=== PATIENT | female | born 1965 | race Caucasian/White ===

== ENCOUNTER 2018-10-19 00:47 | Outpatient (CLI) | payer OTHER, SELFPAY ==
--- NOTE | 2018-10-19 17:33 | DI.MAMMO_ITS ---
SYMPTOMS/DIAGNOSIS: SCREENING, Z12.39 MAMMOGRAMS: Mammograms were interpreted according to the usual protocol including computer analysis with CAD system, tomosynthesis and C view imaging. The breast tissue is of moderate radiodensity. There is no evidence of a mass. There are no suspicious calcifications and there has been no significant interval change when compared with prior images. SUMMARY: No evidence of malignancy, category 1. Yearly screening mammography is recommended. Breast density category B. SA ASSESSMENT OF FINDINGS: Negative. Category 1. Patient will receive a letter notifying them of these results. BI-RADS category B. There are scattered areas of fibroglandular density.
== END 2018-10-19 01:07 ==
PROVIDERS: PCP Nurse Practitioner Family; Visit Provider Nurse Practitioner Family
DX: Z12.31 Encounter for screening mammogram for malignant neoplasm of breast (principal)
CPT/HCPCS: 77063; 77067

== ENCOUNTER 2018-11-03 15:15 | Outpatient (REF) | payer OTHER, SELFPAY ==
[2018-11-03 22:39] LABS: TSH (W/Ref FT4) 0.44 uIU/mL (0.358-3.74)
== END 2018-11-03 15:35 ==
LOC: NCHCN 15:15
PROVIDERS: PCP Nurse Practitioner Family; Visit Provider Nurse Practitioner Family
DX: F41.8 Other specified anxiety disorders (principal); Z63.8 Other specified problems related to primary support group
CPT/HCPCS: 84443

== ENCOUNTER 2019-03-02 07:47 | Outpatient (CLI) | payer MEDICAID, SELFPAY ==
--- NOTE | 2019-03-02 06:00 | DI.RAD_ITS ---
SYMPTOM/DIAGNOSIS: LUMBAR SPONDYLOSIS C-ARM FLUOROSCOPY 03/02 Fluoroscopy Time: 79.4 sec C-Arm fluoroscopy was utilized by Dr. Lim during reported bilateral radiofrequency ablation. Hard copy shows needle placement bilaterally adjacent to the pedicles at what appear to be L4-L5 and S-1.
[2019-03-02 07:51] VITALS: BP 112/71; PULSE 71; RESP 16; TEMP 36.1; O2SAT 99
[2019-03-02] MEDS: Midazolam 2 MG/2 ML VIAL IVP (08:40)
[2019-03-02] MEDS: fentaNYL 100 MCG/2 ML VIAL IVP (08:42)
[2019-03-02] MEDS: Lactated Ringers 1,000 ML 80 ML IV (08:43)
[2019-03-02 09:19] VITALS: BP 129/83; PULSE 65; RESP 17; O2SAT 99
--- NOTE | 2019-03-02 09:25 | PDOC.PAIN ---
Pain Clinic Procedure Note Current Active Problems Problem Status Onset Spondylosis of lumbar region without myelopathy or radiculopathy LUMBAR/SACRAL MEDIAL BRANCH RADIOFREQUENCY USING THE COOLIEF MACHINE ELA LOVE has been referred [facility] the [facility] for radiofrequency treatment of chronic axial back pain. ELA has had long standing back pain thought to be facet joint generated and which has been refractory to other therapies. Local anesthetic medial branch blocks or intra-articular facet joint injections resulted in ELA reporting reduction of the usual axial component of pain for at least the duration of the local anesthetic effect. COMMENTS:She had >6 months of relief with her last RFA on 01/18/2018. I did elect to add the bilateral S1 lateral branches to get a better denervation of the bilateral L5-S1 facet joints without any added cost. Patient was interviewed and the medical record reviewed. There were no medical, pharmacologic, radiographic or other structural contraindications to attempting fluoroscopically guided radiofrequency treatment. Risks and expected side effects as well as potential benefit of the procedure were reviewed and voiced concerns addressed. The printed consent form was signed and witnessed. Standard time-out procedure was performed. Patient was placed in the prone position on the fluoroscopy table and automated blood pressure cuff and pulse oximeter applied. The skin entry points for approaching the anatomic target points of the segmental medial branches of bilateral L3-L5DR and the bilateral S1 lateral brancheswere identified with fluoroscopy and marked. Following thorough Chlorhexadine preparation of the skin and draping and 1% lidocaine infiltration of the skin entry points and subcutaneous tissues, a single 18 guage curved 10 cm 10mm active tip radiofrequency cannula was placed under fluoroscopic guidance along or across the anatomic course of each respective segmental medial branch. Each placement was stimulated at 50Hz and les then 0.5V for medial branch sensory localization and the at 2Hz and up to 3 times the sensory voltage without any evidence of distal myotomal stimulation. 1cc of 1% ;idocaine was injected at each site. At each placement a continuous mode radiofrequency treatment was done at 90 degrees C for 90secs. This radiofrequency treatment should result in the denervation of the bilateral L4-L5 and L5-S1 FACET JOINTS. A total of 4 facets were expected to be denervated from today's treatment. Vital signs were stable throughout the procedure and were as recorded in the docflowsheet by the nursing staff. If given, dosages of intravenous drugs for anxiolysis and analgesia were documented in the Medication Administration Record (MAR). Follow up plans and appointments were discussed. Post procedure instruction was given as documented in the nursing documentation and having met discharge criteria, ELA was [facility] from the [facility]. COMMENTS: If she achieves at least 6 months of pain relief we can repeat this procedure without repeating the LMBBs. CC: Joi Herrera
[2019-03-02] MEDS: methylPREDNISolone ACETATE 40 MG/ML VIAL IJ (09:44)
[2019-03-02] MEDS: Bupivacaine 0.5% Pres-Free 10 ML VIAL IJ (09:45)
[2019-03-02] MEDS: Lidocaine 2% Pres-Free 5 ML VIAL IJ (09:46)
== END 2019-03-02 08:07 ==
PROVIDERS: PCP Nurse Practitioner Family; Visit Provider Preventive Medicine Occupational Medicine
DX: M47.816 Spondylosis without myelopathy or radiculopathy, lumbar region (principal)
CPT/HCPCS: 64635 ×2; 64636 ×2; 72100; J1030; J2250; J3010

== ENCOUNTER 2019-03-04 17:39 | Emergency (ER) | payer MEDICAID, SELFPAY ==
[2019-03-04 17:43] VITALS: BP 121/60; PULSE 84; RESP 18; TEMP 36.4; O2SAT 98
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
[2019-03-04] MEDS: Hydrocortisone 1% CR 30 GM TUBE (18:20)
== END 2019-03-04 18:25 | disposition home or self-care (01) ==
PROVIDERS: Emergency Provider Emergency Medicine; PCP Nurse Practitioner Family
DX: R20.8 Other disturbances of skin sensation (principal); R21 Rash and other nonspecific skin eruption
CPT/HCPCS: 99283

== ENCOUNTER 2019-11-01 13:52 | Outpatient (REF) | payer MEDICAID, SELFPAY ==
[2019-11-01 20:39] LABS: Abs Immature Grans 0.03 k/cumm (0.0-0.09); Absolute Basophil Count 0.05 k/cumm (0.0-0.2); Absolute Eosinophil Count 0.09 k/cumm (0.0-0.7); Absolute Monocyte Count 0.51 k/cumm (0.11-0.7); Absolute Neutrophil Count 3.26 k/cumm (1.2-6.7); Basophils % 0.8; Eosinophils % 1.5; HCT 39.5 % (36.0-46.0); HGB 12.9 g/dL (12.0-15.5); Immature Grans % 0.5 %; Lymphocytes % 35.8; Mean Corp. HGB Concentration 32.7 g/dL (32.0-36.0); Mean Corpuscular Hemoglobin 29.9 pg (27.0-33.0); Mean Corpuscular Volume 91.6 fL (80-95); Mean Platelet Volume 10.7 fL (8.0-11.0); Monocytes % 8.3; Neutrophils % 53.1; Platelet Count 273 x1000/uL (130-400); RBC 4.31 m/cumm (4.00-5.20); RBC Distribution Width 12.8 % (11.7-14.6); White Blood Cell Count 6.14 k/cumm (4.4-10.8)
[2019-11-01 21:12] LABS: Iron 69 ug/dL (50-170); Total Iron Binding Capacity 296 ug/dL (250-450); Transferrin Sat 23 % (15-50)
[2019-11-01 21:33] LABS: Hemoglobin A1C 5.7 % (3.8-5.6)
[2019-11-01 21:36] LABS: Ferritin 117 ng/mL (8-252); TSH (W/Ref FT4) 0.63 uIU/mL (0.36-3.74); Vitamin B12 678 pg/mL (193-986)
[2019-11-02 06:32] LABS: Vitamin D 25 Total 29.6 ng/ml (30-100)
[2019-11-02 15:49] LABS: ALT 18 U/L (14-59); AST 14 U/L (15-37); Albumin 3.9 g/dL (3.4-5.0); Alkaline Phosphatase 74 U/L (46-116); Anion Gap 7.3 mmol/L (3-11); BUN 10 mg/dL (7-18); Bilirubin, Total 0.2 mg/dL (0.2-1.0); CO2 30.7 mmol/L (21.0-32.0); CREATININE 0.87 mg/dL (0.55-1.02); Calcium 8.6 mg/dL (8.5-10.1); Chloride 104 mmol/L (98-107); Glucose 105 mg/dL (74-106); Potassium 4.5 mmol/L (3.5-5.1); Sodium 142 mmol/L (136-145); Total Protein 6.9 g/dL (6.4-8.2)
== END 2019-11-01 14:12 ==
LOC: NCHCN 13:52
PROVIDERS: PCP Nurse Practitioner Family; Visit Provider Nurse Practitioner Family
DX: R63.4 Abnormal weight loss (principal); R53.83 Other fatigue; F41.8 Other specified anxiety disorders; R73.03 Prediabetes
CPT/HCPCS: 80053; 82306; 82607; 82728; 83036; 83540; 83550; 84443; 85025

== ENCOUNTER 2020-06-26 13:28 | Emergency (ER) | payer MEDICAID, SELFPAY ==
[2020-06-26 13:35] VITALS: BP 132/88; PULSE 82; RESP 16; TEMP 36.7; O2SAT 97
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
[2020-06-26 14:41] LABS: Abs Immature Grans 0.05 10^3/uL (0.0-0.06); Absolute Basophil Count 0.06 10^3/uL (0.0-0.2); Absolute Eosinophil Count 0.17 10^3/uL (0.0-0.7); Absolute Lymphocyte Count 2.47 10^3/uL (1.2-3.4); Absolute Monocyte Count 0.53 10^3/uL (0.1-0.8); Absolute Neutrophil Count 5.39 10^3/uL (1.2-6.7); Basophils % 0.7; HCT 39.5 % (36.0-46.0); HGB 12.3 g/dL (11.2-15.7); Immature Grans % 0.6; Lymphocytes % 28.5; MCH 29.4 pg (27.0-33.0); MCHC 31.1 % (32.0-36.0); MCV 94.3 fL (80-95); MPV 9.4 fL (8.0-11.0); Monocytes % 6.1; Neutrophils % 62.1; Nucleated RBC 0 %; Platelet Count 268 10^3/uL (130-400); RBC 4.19 10^6/uL (3.93-5.22); RDW 12.4 % (11.7-14.6); RDW-SD 42.6 fL; WBC 8.67 10^3/uL (4.4-10.8)
[2020-06-26] MEDS: Omnipaque 350 MG/ML 100 ML BTL IJ (14:57)
[2020-06-26] MEDS: Normal Saline Flush 10 ML SYR IVP (14:58)
[2020-06-26] MEDS: Normal Saline - Diluent 50 ML VIAL IV (14:58)
[2020-06-26 14:59] LABS: ALT 18 U/L (14-59); AST 14 U/L (15-37); Albumin 3.6 g/dL (3.4-5.0); Alkaline Phosphatase 55 U/L (46-116); Anion Gap 4.2 mmol/L (3-11); BUN 11 mg/dL (7-18); Bilirubin, Total 0.4 mg/dL (0.2-1.0); CO2 32.8 mmol/L (21.0-32.0); CREATININE 0.97 mg/dL (0.55-1.02); Calcium 8.8 mg/dL (8.5-10.1); Chloride 104 mmol/L (98-107); Glucose 86 mg/dL (74-106); Potassium 4.1 mmol/L (3.5-5.1); Sodium 141 mmol/L (136-145); Total Protein 7.1 g/dL (6.4-8.2)
--- NOTE | 2020-06-26 15:10 | DI.CT_ITS ---
EXAM: CT BRAIN NECK CTA CLINICAL HISTORY: sudden visual changes wednesday morning. TECHNIQUE: Imaging Protocol: Axial CT angiography was performed with multi-slice acquisition and mu lti-planar and/or 3D reconstructions. CONTRAST MATERIAL: Intravenous: Omnipaque 350 Contrast volume:structured data in ml COMPARISON: No exams were available for comparison FINDINGS: CT angiography of the cervical cranial region was performed according to the usual protocol with intr avenous infusion of 85 cc of Omnipaque 350.. Initial noncontrast scanning of the head is unremarkable except for probable right sphenoid sinusitis .. Visualized lung apices are clear. Visualized portions of thoracic aorta and pulmonary arterial circul ation are unremarkable. There is no evidence of a cervical mass or adenopathy. The tracheal laryngeal structures appear intact. The common, internal, and external carotid arteries are within normal limits in the cervical region w ith no evidence of aneurysm, stenosis, or dissection. The vertebral arteries are unremarkable in appearance in the cervical region with no evidence of aneu rysm, stenosis, or dissection. Intracranial portions of the internal carotid arteries appear normal with no evidence of aneurysm, st enosis, or dissection. Intracranial vertebral arteries and basilar artery appear normal with no evidence of aneurysm, stenos is or dissection. The vertebral circulation is left dominant with a small patent right vertebral art sonja which terminates at the level of the PICA. No aneurysm identified in the region of the udkyrf-ri-Iriigl. The anterior, middle, and posterior cer ebral arteries and major branches appear intact with no evidence of aneurysm, stenosis, or dissection . No enhancing brain lesion identified. IMPRESSION: Negative CT angiography of the cervical cranial region. RADIATION DOSE DELIVERED: 1,072.49mGy.cmTotal DLP 1,072.49mGy.cm Total DLP DATA REPOSITORY: All CT scans at this facility are submitted to the National Radiology Data Registry (NRDR) Dose Index Registry (DIR) with the [employer] (ACR). RADIATION OPTIMIZATION: All CT scans at this facility use at least one of these dose optimization te chniques: automated exposure control; mA and/or kV adjustment per patient size (includes targeted exa ms where dose is matched to clinical indication); or iterative reconstruction.
== END 2020-06-26 15:26 | disposition home or self-care (01) ==
PROVIDERS: Emergency Provider Physician Assistant; PCP Nurse Practitioner Family
DX: H53.8 Other visual disturbances (principal)
CPT/HCPCS: 36415; 70496; 70498; 80053; 99285; 85025; J3490

== ENCOUNTER 2021-04-16 20:28 | Emergency (ER) | payer MEDICAID, SELFPAY | END 2021-04-16 20:45 | LOC: ER 20:31 | PROVIDERS: PCP Nurse Practitioner Family | DX: Z53.21 Procedure and treatment not carried out due to patient leaving prior to being seen by health care provider (principal) ==

== ENCOUNTER 2021-05-29 01:41 | Outpatient (CLI) | payer MEDICAID, SELFPAY ==
--- OUTSIDE RECORDS SUMMARY | 2021-05-29 01:43 | XMS_ITS ---
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 ? Active ? 68333 RxNorm Gabapentin ? ? Active ? Penicillins ? ? Active ? Medications Name Status Start Date Stop Date ? ? acetaminophen Active ? Not available albuterol sulf 90 mcg/actuation breath activated powde r inhaler,sensor Completed ? 12/11/2019 Inhale 2 puffs every 4 hours by inhalation route. fentanyl 25 mcg/hr transdermal patch Completed ? 12/11/2019 Apply 1 patch every 72 hours by transdermal route. Low Dose Aspirin 81 mg tablet,delayed release Active ? Not available Take 1 tablet every day by oral route. Nasonex 50 mcg/actuation [place] Completed ? 0 12/11/2019 [place] 2 sprays every day by intranasal route. Symbicort 160 mcg-4.5 mcg/actuation HFA aerosol inhaler Complete d ? 12/11/2019 Inhale 2 puffs twice a day by inhalation route. Vicodin ES 7.5 mg-300 mg tablet Completed ? 12/11/2019 Take 1 tablet every 6 hours by oral route. Xopenex HFA 45 mcg/actuation aerosol inhaler Completed ? 12/11/2019 Inhale 2 puffs every 6 hours by inhalation route. Zyrtec 10 mg capsule Active ? Not availab le Take by oral route. Problems Name Status Onset Date Source ? Hyperlipidemia Active 12/06/2019 ? Obesity Active 12/06/2019 ? Anxiety Active 12/06/2019 ? Depressive Disorder Active 12/06/2019 ? Obstructive Sleep Apnea Syndrome Active 12/06/2019 ? Migraine Active 12/06/2019 ? Allergic Rhinitis Active 12/06/2019 ? Asthma Active 12/06/2019 ? Restrictive Lung Disease Active 12/06/2019 ? Gastroesophageal Reflux Disease Active 12/06/2019 ? Low Back Pain Active 12/06/2019 ? 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 12/11/2019 Polysomnogram Information not avai lable Results Lab Results None recorded. Past Encounters 02/20/2020 Hypersomnia Disorder Related to a Known Organic Factor Tori Payton [employer] MANAGER: [address] [phone], Ph. 12/11/2019 Obstructive Sleep Apnea Syndrome; Period ic Leg Movements of Sleep Tori Payton [employer] MANAGER: [address] [phone], Ph. Social History Tobacco Smoking Status Never Smoker (1/2 pack per day) Not es: quit 2017 Vaccine List None recorded. Plan of Care Reminders Provider Appointments None ? ? recorded. Lab None ? ? recorded. Referral None ? ? recorded. Procedures None ? ? recorded. Surgeries None ? ? recorded. Imaging None ? ? recorded. Vitals 02/20/2020 12:30PM Office 30 Height Weight BMI 154.94 cm 45.36 kg 18.9 kg/m2 12/11/2019 02:30PM New Patient 45 Height Weight BMI Blood Pressure 154.94 cm 46.72 kg 19.5 kg/m2 128/60 mm[Hg]
--- NOTE | 2021-05-29 10:09 | DI.MAMMO_ITS ---
Exam(s) MAMMO SCREENING EXAM: MAMMO SCREENING CLINICAL HISTORY: SCREENING EXAM FOR BREAST CANCER Z12.39. TECHNIQUE: Bilateral full field digital CC and MLO mammographic images were obtained with 3D tomosyn thesis and utilizing computer aided detection (CAD). COMPARISON: Prior mammograms dating back to 2015, the most recent being September 2018. FINDINGS: There has been no significant change in appearance and distribution fibroglandular tissue. There are no new spiculated masses nor malignant appearing microcalcification groups. There is no significant architectural distortion nor skin thickening-retraction. IMPRESSION: No radiographic evidence of malignancy. BI-RADS Category 1 - Negative Breast Density - Category B - Scattered areas of fibroglandular density Breast density Category C or D implies that the patient has dense breast tissue. Dense breast tissue can make it harder to find cancer on a mammogram. Dense breast tissue is also associated with an incr eased risk of breast cancer. This information about the result of the mammogram report was provided to the patient to raise their awareness. Use this report when you speak with the patient about their risks for breast cancer, which includes their family history. At that time, you may recommend additional screening tests (Ultrasoun d or MRI) as these tests may add significant information. A negative radiographic report should not delay biopsy if a dominant or clinically suspicious mass is present. Up to ten percent of cancers are not identified on mammography. A negative report may reinforce clinical impression. Adenosis and dense breasts may obscure an underlying neoplasm. False positive reports average 6 to 10%. Patient will receive a letter notifying them of these results.
== END 2021-05-29 02:01 ==
PROVIDERS: PCP Nurse Practitioner Family; Visit Provider Nurse Practitioner Family
DX: Z12.31 Encounter for screening mammogram for malignant neoplasm of breast (principal)
CPT/HCPCS: 77063; 77067

== ENCOUNTER 2021-06-14 09:50 | Outpatient (REF) | payer MEDICAID, SELFPAY ==
[2021-06-15 10:43] LABS: COVID-19 RT-PCR UVMMC Result Negative (Negative)
== END 2021-06-14 09:51 | disposition home or self-care (01) ==
LOC: NCHCN 09:50
PROVIDERS: PCP Nurse Practitioner Family; Visit Provider Physician Assistant Medical
DX: Z20.822 Contact with and (suspected) exposure to COVID-19 (principal)
CPT/HCPCS: U0003

== ENCOUNTER 2021-09-16 03:20 | Outpatient (CLI) | payer MEDICAID, SELFPAY ==
--- NOTE | 2021-09-16 13:00 | NS.NUTBLAN_ITS ---
Yovana was referred for nutritional counseling for weight management s/p gastric bypass surgery in 2016. Highest weight: 252 lbs, Lowest weight: 110 lbs. 5'2 125 lbs, BMI: 23. Overall, bariatric surgery uncomplicated and able to digest most foods. Continues to have dumping syndrome and fullness with large meals. Yovana reports putting her mother and into snf in [facility] of this year. has early Alzheimers and she has been caring for him at home for last 2 years, sleeping on sofa at night to be sure didn't leave house. Daughter just moved in with her as she was feeling lost living alone. Reports increase in beer drinking (through out day) and smoking since left- not working. Sleeps for 2 hours, wakes up, eats chips through out day. Has had severe depression since June and has not been taking any vitamins. Scoop nails indicate vitamin deficiency. Diet recall: beer, chips, hashbrown with cheese on tortilla. Session today focused on how life stressors can alter nutritional intake. [place] on junk foods, beer and nicotine all coping mechanisms to stress. Psychiatry appointment pending. Reviewed importance of restarting MVI, Calciuim Vit D and sublingual B12. Reviewed importance of increasing protein in diet. Weight regain expected. At ideal weight at this time. Goal is to maintain weight below 130 lbs. Plan: 1. Protein Shakes at [employer], Dinner: 4 ounces protein and vegetables. 2. reduce beer and chip intake 3. reduce reliance on nicotine- talk to PCP about patch follow up 10/14/21 at 1 pm.
== END 2021-09-16 03:21 | disposition home or self-care (01) ==
LOC: DS 03:20
PROVIDERS: PCP Nurse Practitioner Family; Visit Provider Dietitian, Registered
DX: K91.1 Postgastric surgery syndromes (principal); E56.9 Vitamin deficiency, unspecified; F32.89 Other specified depressive episodes; Z98.84 Bariatric surgery status; Z71.3 Dietary counseling and surveillance
CPT/HCPCS: 97802

== ENCOUNTER 2021-09-30 04:33 | Outpatient (CLI) | payer MEDICAID, SELFPAY | END 2021-09-30 04:34 | disposition home or self-care (01) | LOC: LBO 04:33 | PROVIDERS: PCP Nurse Practitioner Family; Referring Provider Nurse Practitioner Family ==

== ENCOUNTER 2021-10-13 02:43 | Outpatient (CLI) | payer MEDICAID, SELFPAY | END 2021-10-13 02:44 | disposition home or self-care (01) | LOC: LBO 02:44 | PROVIDERS: PCP Nurse Practitioner Family; Referring Provider Nurse Practitioner Family ==

== ENCOUNTER 2021-10-14 02:31 | Outpatient (CLI) | payer MEDICAID, SELFPAY | END 2021-10-14 02:32 | disposition home or self-care (01) | LOC: DS 02:31 | PROVIDERS: PCP Nurse Practitioner Family; Visit Provider Dietitian, Registered ==

== ENCOUNTER 2021-10-22 04:54 | Outpatient (CLI) | payer MEDICAID, SELFPAY | END 2021-10-22 04:55 | disposition home or self-care (01) | LOC: LBO 04:54 | PROVIDERS: PCP Nurse Practitioner Family; Visit Provider Nurse Practitioner Family ==

== ENCOUNTER 2021-10-23 03:20 | Outpatient (CLI) | payer MEDICAID, SELFPAY | END 2021-10-23 03:21 | disposition home or self-care (01) | LOC: DS 03:20 | PROVIDERS: PCP Nurse Practitioner Family; Visit Provider Dietitian, Registered ==

== ENCOUNTER 2021-11-07 10:00 | Outpatient (REF) | payer MEDICAID, SELFPAY ==
--- NOTE | 2021-11-07 09:00 | PAPFT_PTH ---
PATIENT: Yovana Apodaca LOC: [facility] U#:[id number] AGE/SX: 56/F ROOM: RE11/07/[address]: Colleen Jurado APRN : 1965 BED: DIS: 11/07/2021 SPEC #: [id number] RECD: 11/07/21 16:03 STATUS: KAZ SIMS #: [id number] SAMEER: 11/07/21 09:[address]: Colleen Jurado DEPT: [facility] Cytology RECD BY: Leah Khan Tissues: 1 - CX/ENDOCX FOR PAP SMEARS Procedures: PAP THIN PREP/UVM Screening HPV DNA PROBE Comments: [id number]
== END 2021-11-07 10:01 | disposition home or self-care (01) ==
LOC: LBN 10:00
PROVIDERS: PCP Nurse Practitioner Family; Visit Provider Nurse Practitioner Family
DX: Z11.51 Encounter for screening for human papillomavirus (HPV) (principal); Z12.4 Encounter for screening for malignant neoplasm of cervix
CPT/HCPCS: 88142; 87624

== ENCOUNTER 2022-04-16 10:16 | Outpatient (CLI) | payer MEDICAID, SELFPAY ==
--- NOTE | 2022-04-16 06:00 | DI.RAD_ITS ---
Exam(s) XR PAIN CLINIC LUMBAR SP 2V EXAM: XR PAIN CLINIC LUMBAR SP 2V CLINICAL HISTORY: Dx: Lumbar Spondylosis TECHNIQUE: 2D and realtime digital imaging was performed. COMPARISON: No exams were available for comparison FINDINGS: C-arm fluoroscopy was utilized by Dr. Lim during reported bilateral lumbar medial branch block. Messi d copy shows needle placement bilaterally at what appear to be the L3-4, L4-5, and L5-S1 levels. IMPRESSION: RADIATION DOSE DELIVERED: jason Tavares= 6.52 mGy Total DLP
[2022-04-16 10:39] VITALS: BP 136/96; PULSE 90; RESP 20; TEMP 37; O2SAT 96
[2022-04-16] MEDS: Lidocaine 2% Pres-Free 5 ML VIAL IJ (11:45)
[2022-04-16 11:46] VITALS: BP 155/92; PULSE 77; RESP 20; O2SAT 98
[2022-04-16] MEDS: Omnipaque 240 MG/ML 50 ML BTL IJ (11:46)
== END 2022-04-16 10:17 | disposition home or self-care (01) ==
LOC: PC 10:16
PROVIDERS: PCP Nurse Practitioner Family; Visit Provider Preventive Medicine Occupational Medicine
DX: M47.817 Spondylosis without myelopathy or radiculopathy, lumbosacral region (principal)
CPT/HCPCS: 64493; 64494; 72100; Q9967

== ENCOUNTER 2022-05-28 11:49 | Outpatient (CLI) | payer MEDICAID, SELFPAY ==
[2022-05-28 11:55] VITALS: BP 156/99; PULSE 122; RESP 20; TEMP 37; O2SAT 96
[2022-05-28] MEDS: Midazolam 2 MG/2 ML VIAL IVP (12:15)
[2022-05-28] MEDS: fentaNYL 100 MCG/2 ML VIAL IVP ×2 (12:15→12:32)
[2022-05-28] MEDS: Lactated Ringers 500 ML 80 ML IV (12:20)
--- NOTE | 2022-05-28 12:50 | DI.RAD_ITS ---
Exam(s) XR PAIN CLINIC LUMBAR SP 2V EXAM: XR PAIN CLINIC LUMBAR SP 2V CLINICAL HISTORY: Dx: Lumbar Spondylosis TECHNIQUE: 2D and realtime digital imaging was performed. COMPARISON: No exams were available for comparison FINDINGS: C-arm fluoroscopy was utilized by Dr. Lim during reported lumbar radiofrequency ablation. Hard copy shows needle placements adjacent to neural foramina bilaterally at what appear to be the L3-4, L4-5, and L5-S1 levels. IMPRESSION: RADIATION DOSE DELIVERED: jason Tavares=12.34 mGy
[2022-05-28 12:53] VITALS: BP 155/96; PULSE 66; RESP 16; O2SAT 100
--- NOTE | 2022-05-28 13:04 | PDOC.PAIN ---
Date of service: 05/28/22 Time of Service: 13:08 Pain Clinic Procedure Note Procedure Note Procedure Note: Bilateral Lumbar Radiofrequency with Coolief Machine PROCEDURE NOTE Date of Service: May 28, 2022 Patient: Yovana Apodaca Provider: Den Lim DO, MPH Pre Operative Diagnosis: Lumbosacral Spondylosis without Myelopathy Post Operative Diagnosis: Same Pre-procedure pain; VAS= 8/10 PROCEDURE: Radiofrequency Ablation of medial branches - Bilateral L3 L4 L5 and lateral branches of bilateral S1. Yovana Apodaca was brought into the fluoroscopy suite and positioned into the prone position on the fluoroscopy table and allowed to adjust to a position of comfort. A grounding pad was placed on the right thigh. The lumbar region was widely prepped with a chloraprep solution, allowed to air dry and draped in standard sterile surgical fashion. Local anesthesia was provided by 4 mL of 2 % Lidocaine delivered with a 25g needle. A 17g 100 mm radiofrequency introducer needle was placed to the planned anatomic targets guided with intermittent fluoroscopy with a perpendicular approach to terminally place at the junction of the superior articular process and the transverse process of the bilateral L4, L5, the base of the sacral ala on the bilateral for the L5 medial branch nerve and the area between base of the sacral ala to the S1 foramen bilaterally. The stylets were removed and radiofrequency probes with a 4mm active tip were then inserted. Needle tip position of the probes was verified in the AP, oblique, and lateral views. At each site, the medial branch nerve was stimulated at 2 Hz to a maximum 1-2 volts determined to finalize safe needle and electrode placement. The patient was awake and responsive during this portion of the procedure. Each target was anesthetized with 1-2 mL of 2 % Lidocaine for anesthesia for lesioning and then each target was lesioned at 80 degrees Celsius for 2 minutes and 30 seconds. Tissue impedences were noted to be between 250 and 500 Ohms. Electrodes and needles were then removed and bandages placed over the needle placement sites, the patient then returned to the supine position on a stretcher and transported to the recovery room without hemodynamic, neurologic, or allergic reactions. Fluoroscopic images were printed for hard copy recording and digitally archived. POST PROCEDURE EVALUATION: IMPRESSION: 1. Summary of procedure. Medication given is documented in the MAR. 2. The patient will be contacted in 1-3 weeks 3. Estimated Blood Loss: <5 mls 4. Fluoroscopy time: Documented in the EMR. Follow up plans and appointments were discussed with the Yovana . Post procedure instruction was given as documented in nursing documentation and having met discharge criteria, Yovana was discharged from the [facility]. COMMENTS: No apparent complications. Post-procedure pain: VAS= 0/10. F/U with our office as needed. Den Lim DO, MPH [facility] [place]-Pain Management [facility]
[2022-05-28] MEDS: Lidocaine 2% Pres-Free 5 ML VIAL IJ (13:05)
[2022-05-28] MEDS: Bupivacaine 0.5% Pres-Free 10 ML VIAL IJ (13:06)
[2022-05-28] MEDS: methylPREDNISolone ACETATE 40 MG/ML VIAL IJ (13:06)
--- NOTE | 2022-06-08 13:00 | PDOC.PAIN_ITS ---
Date of service: 04/16/22 Time of Service: 15:00 Pain Clinic Procedure Note Procedure Note Procedure Note: PROCEDURE NOTE LUMBAR MEDIAL BRANCH DIAGNOSTIC BLOCKS Date of Service: April 16, 2022 Patient: Yovana Apodaca Provider: Den Lim DO, MPH Diagnosis: Lumbosacral Spondylosis without Myelopathy Post-operative diagnosis: Same Pre-procedure pain: VAS= 7/10 She was previously seen in the office and did very well with her first LMBB. Pre-procedure Note History and Exam: Patient demonstrates today moderate to severe non- radicular back pain without neurologic deficit aggravated by hyperextension Yes Back pain greater than leg pain Yes Patient today has tenderness over the suspected joint(s) Yes History of post-traumatic injury No Hypertrophic arthropathy Yes Back pain associated with suspected motion segment instability or Hypermobility or pseudoarthrosis No Pre-testing pain score (VAS): 7/10 Previous medial branch block testing?: YES Today's Operative Note Yovana Apodaca was greeted by the nurse who verified the patients name and . Patient was then taken to the fluoroscopy suite. Yovana was interviewed and the medical record was reviewed. There were no medical contraindications to performing the bilateral lumbar medial branch nerve blocks. I first had a talk with the patient and discussed the potential risks, benefits, side effects, and alternatives of this procedure including but not limited to increased pain from the procedure, no pain relief, nerve damage, infection, and bleeding. She comprehended my conversation and accepts the risks and understands the goals of this diagnostic procedure. All questions and concerns from the patient were addressed. After I was comfortable that the patient was fully informed about this procedure, the printed consent form was signed. Standard time-out procedure was performed Yovana was placed in the prone position on the fluoroscopy table and automated blood pressure cuff and pulse oximeter were applied. The anatomic target points of the segmental medial branches of the bilateral L3, L4 and L5DR were identified with fluoroscopy. Following thorough Chlorhexadine preparation of the skin and draping, a 25 gauge 3.5 spinal needle was placed under fluoroscopic guidance down on to the target point for each respective segmental medial branch.Position was confirmed in A/P, oblique and lateral views and 0.25 mls of Omnipaque-240 at each segmental nerve. At each level we injected 0.5ml of Bupivacaine 0.5% at each segmental sensory nerve. (48 mls of Omnipaque was wasted) Yovana 's vital signs were stable throughout the procedure and were as recorded in the docflowsheet by the nursing staff. Postoperatively, today patient demonstrates the following changes with hypere xtension and with tenderness over the suspected joint(s). Provacative testing using the Garcia's facet loading test Right side Left side Directly before the block VAS (0-10) = 7/10 VAS (0-10) = 7/10 5 minutes after the block VAS (0-10) = 1/10 VAS (0-10) = 1/10 Percentage relief obtained with this diagnostic block 90% 90% Any improved physical functioning directly after the blocks? Able to move the low back much better Next, Yovana was asked to record the percent pain relief and any changes in provocative maneuvers for the next 4 hours. She will report this information at the next business day to one of our nurses. Based on the medial branches blocked today, if the patient meets insurance criteria for radiofrequency, the treatment should result in the denervation of the bilateral L4-L5 and L5-Y3vakuf joint nerves. We would expect to denervate a total of 4 facets during the radiofrequency ablation. Discharge plan:: She will call back with her 0-4 hour post-procedure pain scores. Post-procedure pain: VAS= 1/10. Den Lim DO, MPH ABPMR-subspecialty board certification in Pain Medicine [facility] for [facility] Management
== END 2022-05-28 11:50 | disposition home or self-care (01) ==
LOC: PC 11:49
PROVIDERS: PCP Nurse Practitioner Family; Visit Provider Preventive Medicine Occupational Medicine
DX: M47.817 Spondylosis without myelopathy or radiculopathy, lumbosacral region (principal)
CPT/HCPCS: 64635; 64636; 72100; J1030; J2250; J3010

== ENCOUNTER 2022-10-26 03:53 | Outpatient (CLI) | payer MEDICAID, SELFPAY ==
--- NOTE | 2022-10-26 06:15 | DI.MAMMO_ITS ---
Exam(s) MAMMO SCREENING EXAM: MAMMO SCREENING CLINICAL HISTORY: screening,Z12.39 TECHNIQUE: Bilateral full field digital CC and MLO mammographic images were obtained with 3D tomosyn thesis and utilizing computer aided detection (CAD). COMPARISON: Available for comparison. FINDINGS: Masses/Architectural Distortion: None seen. Microcalcifications: No suspicious pleomorphic-type are seen. Skin Thickening/Nipple Retraction: None. IMPRESSION: 1. No significant interval change with no specific features of malignancy noted. 2. Unless there is more urgent need, screening mammography is recommended, as per [employer] guidelines. BI-RADS Category 1 - Negative Breast Density - Category B - Scattered areas of fibroglandular density Breast density category C or D implies that the patient has dense breast tissue. Dense breast tissue is very common and is not abnormal but dense breast tissue can make it harder to find cancer on a ma mmogram. Also, dense breast tissue may increase their breast cancer risk. This information about the result of the mammogram report was provided to the patient to raise their awareness. Use this report when you speak with the patient about their risks for breast cancer, which includes their family hist ory. At that time, you may recommend for more screening tests (Ultrasound or MRI) as they might be us eful based on their risk. A negative radiographic report should not delay biopsy if a dominant or clinically suspicious mass is present. Up to ten percent of cancers are not identified on mammography. A negative report may reinforce clinical impression. Adenosis and dense breasts may obscure an underlying neoplasm. False positive reports average 6 to 10%. Patient will receive a letter notifying them of these results.
== END 2022-10-26 04:13 ==
LOC: DI 03:54
PROVIDERS: PCP Nurse Practitioner Family; Visit Provider Nurse Practitioner Family
DX: Z12.31 Encounter for screening mammogram for malignant neoplasm of breast (principal)
CPT/HCPCS: 77063; 77067

== ENCOUNTER 2022-11-23 10:00 | Emergency (ER) | payer MEDICAID, SELFPAY ==
[2022-11-23 10:05] VITALS: BP 146/89; PULSE 87; RESP 18; TEMP 36.9; O2SAT 98
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
== END 2022-11-23 10:46 | disposition home or self-care (01) ==
PROVIDERS: Emergency Provider Physician Assistant; PCP Nurse Practitioner Family
DX: J02.0 Streptococcal pharyngitis (principal); R11.2 Nausea with vomiting, unspecified
CPT/HCPCS: 87880; 99283; 99284

== ENCOUNTER 2023-01-19 08:12 | Outpatient (CLI) | payer MEDICAID, SELFPAY ==
[2023-01-19 08:31] VITALS: BP 131/84; PULSE 70; RESP 20; TEMP 36.7; O2SAT 97
[2023-01-19] MEDS: fentaNYL 100 MCG/2 ML VIAL IVP ×2 (09:10→09:15)
[2023-01-19] MEDS: Midazolam 2 MG/2 ML VIAL IVP (09:11)
[2023-01-19] MEDS: Lactated Ringers 500 ML 80 ML IV (09:11)
--- NOTE | 2023-01-19 09:32 | DI.RAD_ITS ---
Exam(s) XR PAIN CLINIC LUMBAR SP 2V EXAM: XR PAIN CLINIC LUMBAR SP 2V CLINICAL HISTORY: Dx: Lumbar Spondylosis TECHNIQUE: 2D and realtime digital imaging was performed. CONTRAST MATERIAL: Refer to procedure report. COMPARISON: No exams were available for comparison FINDINGS: Fluoroscopy was provided for Dr. Lim during the performance of a lumbar radiofrequency ablation. P lease refer to the procedure report for complete details. Ka,r=8.22 mGy IMPRESSION:
[2023-01-19 09:39] VITALS: BP 139/87; PULSE 68; RESP 16; O2SAT 97
[2023-01-19] MEDS: Lidocaine 2% Pres-Free 5 ML VIAL IJ (09:49)
[2023-01-19] MEDS: methylPREDNISolone ACETATE 40 MG/ML VIAL IJ (09:50)
[2023-01-19] MEDS: Bupivacaine 0.5% Pres-Free 10 ML VIAL IJ (09:50)
--- NOTE | 2023-01-19 09:50 | PDOC.PAIN_ITS ---
Date of service: 01/19/23 Time of Service: 09:55 Pain Managment Procedure Note Procedure Note Procedure Note: PROCEDURE NOTE RIGHT LUMBAR RADIOFREQUENCY ABLATION Date of Service: January 19, 2023 Patient:? Yovana Apodaca? Provider:? Den Lim DO, MPH Yovana Apodaca [facility] Right Lumbar Radiofrequency Ablation with the [employer] Machine.? Pre Operative Diagnosis: Lumbosacral Spondylosis without Myelopathy Post Operative Diagnosis: Same Pre procedure pain; VAS= 8/10 Comments: She continues to have near complete relief of her left low back from the last RFA. She had >6 months relief from the RFA to the right sided low back pain. She requests to just do the RFA to the right side today as the left side is not painful. PROCEDURE: Radiofrequency Ablation of medial branches - right L3, L4, L5 and lateral branches of right S1. Yovana?was interviewed and the medical record was reviewed.? There were no medical, pharmacologic, radiographic or other structural contraindications to attempting fluoroscopically guided RIGHT Lumbar Radiofrequency Ablation.?Risks and expected side effects as well as potential benefit of the procedure were reviewed with Yovana, and the patient's voiced concerns were addressed.? The printed consent form was signed.? Standard time-out procedure was performed. Yovana was brought into the fluoroscopy suite and positioned into the prone position on the fluoroscopy table and allowed to adjust to a position of comfort. A grounding pad was placed on the left abdomen. The sterile field was prepared using chlorhexidine preparation of the skin and sterile draping. Local anesthesia superficial and deep was provided by local infiltration of 2% lidocaine. A 17g 100 mm radiofrequency introducer needle was placed to the planned anatomic targets guided with intermittent fluoroscopy with a perpendicular approach to terminally place at the junction of the superior articular process and the transverse process of the right L4, L5, the base of the sacral ala on the right for the L5 medial branch nerve and the area between base of the sacral ala to the S1 foramen on the right. The stylets were removed and radiofrequency probes with a 4mm active tip were then inserted. Needle tip position of the probes was verified in the AP, oblique, and lateral views. At each site, the medial branch nerve was stimulated at 2 Hz to a maximum 1-2 volts determined to finalize safe needle and electrode placement. The patient was awake and responsive during this portion of the procedure. Each target was anesthetized with 1-2 mL of 2 % Lidocaine for anesthesia for lesioning and then each target was lesioned at 80 degrees Celsius for 2 minutes and 30 seconds. Tissue impedances were noted to be between 250 and 500 Ohms. There was no unusual discomfort expressed by Yovana. The needles were withdrawn without difficulty and bandages placed over the needle placement sites, the patient was observed and was without hemodynamic, neurologic, or allergic reactions. Fluoroscopic images were digitally archived. POST PROCEDURE EVALUATION: IMPRESSION: 1. Summary of procedure. Medication given is documented in the MAR. 2. Follow up plan: Yovana to contact [facility] as needed.?This procedure may be repeated if the patient achieves at least 50% improvement in pain/function for at least 6 months. 3. Estimated Blood Loss: <5 mls 4. Fluoroscopy time: Documented in the EMR. Follow up plans and appointments were discussed with the Yovana. Post procedure instruction was given as documented in nursing documentation and having met discharge criteria, Yovana was discharged from the [facility]. COMMENTS: No apparent complications. Post-procedure pain: VAS= 1/10. I personally completed the entire procedure. DEN LIM DO, MPH ABPM&R - Subspecialty board certification in Pain Medicine [facility] [facility]
== END 2023-01-19 08:13 | disposition home or self-care (01) ==
PROVIDERS: PCP Nurse Practitioner Family; Visit Provider Preventive Medicine Occupational Medicine
DX: M47.817 Spondylosis without myelopathy or radiculopathy, lumbosacral region (principal)
CPT/HCPCS: 64635; 64636; 72100; J1030; J2250; J3010

== ENCOUNTER 2023-10-06 21:18 | Outpatient (REF) | payer MEDICAID, SELFPAY | END 2023-10-06 21:19 | disposition home or self-care (01) | LOC: LBN 21:18 | PROVIDERS: PCP Nurse Practitioner Family; Visit Provider Nurse Practitioner Family | DX: L03.011 Cellulitis of right finger (principal) | CPT/HCPCS: 87077; 87070; 87186; 87205 ==

== ENCOUNTER 2024-01-24 17:50 | Emergency (ER) | payer MEDICAID, SELFPAY ==
[2024-01-24] VITALS (50 sets, daily range): BP systolic 95–141; BP diastolic 60–105; PULSE 77–95; RESP 7–23; TEMP 36.7; O2SAT 91–98
--- NOTE | 2024-01-24 17:30 | RT.EKG_ITS ---
APPROVED REPORT Exam: Resting ECG Reason for Exam: unresponsive episode Patient Location: E HR:90 bpm ECG Measurements Heart Rate 90 AXIS IN 140 P 61 QRSd 90 QRS 36 QT 389 T 50 QTc 477 Conclusion Sinus rhythm...normal P axis, V-rate 60- 99 sinus rhtyhm, normal axis, normal intervals, non ischemic
--- NOTE | 2024-01-24 17:45 | DI.CT_ITS ---
Exam(s) CT HEAD WO EXAM: CT HEAD WO CLINICAL HISTORY: ams, od. TECHNIQUE: Imaging Protocol: Axial computed tomography images with coronal and sagittal reformatted images were created and reviewed COMPARISON: CT CT BRAIN NECK CTA from 06/26/2020 FINDINGS: Ventricles and Extra axial spaces: Normal in size and morphology for the patient's age. Hemorrhage: None. Cerebral parenchyma: No evidence of acute infarct or mass. Midline shift: None. Brainstem/Cerebellum: The cerebellar tonsils descend slightly below the level of the foramen magnum, unchanged in appearance. No evidence brainstem or cerebellar compression. Calvarium: Normal. Visualized Paranasal sinuses:Mucous retention right sphenoid sinus. Mastoids: Clear. Soft Tissues: Unremarkable. ORBITS: Unremarkable. PITUITARY: Not enlarged. IMPRESSION: No acute intracranial process. RADIATION DOSE DELIVERED: Total DLP DATA REPOSITORY: All CT scans at this facility are submitted to the National Radiology Data Registry (NRDR) Dose Index Registry (DIR) with the [employer] (ACR). RADIATION OPTIMIZATION: All CT scans at this facility use at least one of these dose optimization te chniques: automated exposure control; mA and/or kV adjustment per patient size (includes targeted exa ms where dose is matched to clinical indication); or iterative reconstruction.
[2024-01-24] MEDS: Normal Saline 1,000 ML 1000 ML IV (18:08)
[2024-01-24 18:14] LABS: Bilirubin Negative (Negative); Blood Trace-intact (Negative); Clarity Clear (Clear); Glucose 250 mg/dL (Negative); Ketones Negative (Negative); Leukocyte Esterase Negative (Negative); Nitrite Negative (Negative); Urobilinogen 0.2 mg/dL (Up to 0.2); pH 6.5 (5-8)
[2024-01-24 18:25] LABS: *AMPHETAMINES SCREEN URINE Negative (Negative); *BARBITURATES SCREEN URINE Negative (Negative); *BENZODIAZEPINES SCREEN URINE Negative (Negative); Bacteria Rare HPF (Negative); Cannabinoids THC Negative (Negative); Cocaine Screen,Urine Negative (Negative); Crystals Negative HPF (Negative); Epithelial Cells Rare HPF (Negative); METHADONE URINE SCREEN Positive (Negative); Mucus Negative (Negative); OPIATES URINE SCREEN Negative (Negative); RBC 0-2 HPF (0-2); WBC 0-2 HPF (0-5)
[2024-01-24 18:26] LABS: C & S Indicated? No; Casts 0-2 Hyaline LPF (Negative)
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
[2024-01-24 18:29] LABS: HCT 37.1 % (36.0-46.0); HGB 11.8 g/dL (11.2-15.7); MCHC 31.8 % (32.0-36.0); MCV 94 fL (80-95); MPV 9.5 fL (8.0-11.0); Platelet Count 231 10^3/uL (130-400); RBC 3.93 10^6/uL (3.93-5.22); RDW 13.4 % (11.7-14.6); RDW-SD 46.6 fL; WBC 23.13 10^3/uL (4.4-10.8)
[2024-01-24 18:32] LABS: BE (Venous) -1 mmol/L (-2-3); HCO3 (Venous) 26 mmol/L (23-28); TCO2 (Venous) 25 mmol/L (24-29); pCO2 (Venous) 60 mmHg (41-51); pH (Venous) 7.25 (7.31-7.41); pO2 (Venous) 42 mmHg
[2024-01-24 18:33] LABS: O2 Sat (Venous) 68 %
[2024-01-24 18:35] LABS: Tricyclic Antidepressants Negative (Negative)
[2024-01-24 18:42] LABS: Prothrombin Time 10.4 sec (9.1-11.1)
[2024-01-24 18:51] LABS: Absolute Lymphocyte Count 1.39 10^3/uL (1.2-3.4); Absolute Monocyte Count 1.39 10^3/uL (0.1-0.8); Absolute Neutrophil Count 20.35 10^3/uL (1.2-6.7); Atypical Lymphocytes % 1 %; Bands % 6 %; Diff Comment Manual Differential; RBC Morphology Normal
[2024-01-24 18:58] LABS: ALT 34 U/L (14-59); AST 72 U/L (15-37); Albumin 3.3 g/dL (3.4-5.0); Alkaline Phosphatase 76 U/L (46-116); Anion Gap 8.4 mmol/L (3-11); BUN 14 mg/dL (7-18); Bilirubin, Total 0.22 mg/dL (0.2-1.0); CO2 28.6 mmol/L (21.0-32.0); CREATININE 1.3 mg/dL (0.55-1.02); Calcium 8.1 mg/dL (8.5-10.1); Chloride 110 mmol/L (98-107); ETHANOL BLOOD < 3.0 mg/dL (<10); Estimated GFR 47.37 (mL/min/1.73m2); Glucose 197 mg/dL (74-106); Magnesium 1.8 mg/dL (1.8-2.4); Sodium 147 mmol/L (136-145); TSH (W/Ref FT4) 5.58 uIU/mL (0.36-3.74); Total Protein 6.6 g/dL (6.4-8.2)
[2024-01-24 19:01] LABS: Acetaminophen < 2 ug/mL (10-30); Salicylate < 2.8 mg/dL (<2.8)
[2024-01-24 19:15] LABS: FREE T4 0.73 ng/dL (0.76-1.46)
--- NOTE | 2024-01-24 19:25 | DI.RAD_ITS ---
Exam(s) XR PORTABLE CHEST AP EXAM: XR PORTABLE CHEST AP CLINICAL HISTORY: ams TECHNIQUE: 2D digital imaging was performed. COMPARISON: CR CHEST 2 VIEWS PA,LAT from 12/25/2014 FINDINGS: Leads overlie the chest. LUNGS: Question minimal densities above the right diaphragm, atelectasis versus infiltrate no pleural abnormality seen. HEART: Upper limits of normal in size. AORTA: Normal diameter. BONES: Unremarkable for age. Soft tissues: Unremarkable. IMPRESSION: Question right lower lobe atelectasis versus infiltrate. DATA REPOSITORY: RADIATION DOSE DELIVERED:
--- NOTE | 2024-01-24 19:45 | DI.VRAD_ITS ---
PROCEDURE INFORMATION: Exam: CT Head Without Contrast Exam date and time: 01/24/2024 7:19 PM Age: 58 years old Clinical indication: Other: AMS, od TECHNIQUE: Imaging protocol: Computed tomography of the head without contrast. Radiation optimization: All CT scans at this facility use at least one of these dose optimization techniques: automated exposure control; mA and/or kV adjustment per patient size (includes targeted exams where dose is matched to clinical indication); or iterative reconstruction. COMPARISON: CT BRAIN NECK CTA 06/26/2020 2:59 PM FINDINGS: Brain: Cerebral sulci show bilateral symmetry with no supratentorial mass or mass effect detected. Brainstem and cerebellum are unremarkable. There is no evidence of acute transcortical infarction or recent intracranial hemorrhage. Cerebral ventricles: Ventricular and cisternal spaces are normal in size and configuration and there is no midline shift or hydrocephalus seen. Paranasal sinuses: Focal soft tissue density seen along the posterior margin of the right sphenoidal air cell with other paranasal sinuses grossly clear throughout. Mastoid air cells: Grossly clear bilaterally. Probable cerumen seen in the left external auditory canal. Bones: Bony calvarium and skull base are intact and no acute fractures are detected. Soft tissues: Unremarkable. IMPRESSION: No evidence of acute transcortical infarction, recent intracranial hemorrhage or hydrocephalus. No acute intracranial process is detected. Dictated and Authenticated by: Horace Castaneda MD. Ordering:JONNY Cuevas MD
--- NOTE | 2024-01-24 19:46 | DI.VRAD_ITS ---
PROCEDURE INFORMATION: Exam: XR Chest Exam date and time: 01/24/2024 7:19 PM Age: 58 years old Clinical indication: Patient HX: AMS, od TECHNIQUE: Imaging protocol: Radiologic exam of the chest. Views: 1 view. COMPARISON: CT BRAIN NECK CTA 06/26/2020 2:59 PM FINDINGS: Lungs: Minimal patchy density seen at the right lung base with no other parenchymal mass or consolidation detected. Pleural spaces: No pneumothorax or pleural effusion detected. Heart/Mediastinum: Heart size is upper limits of normal and vessel margins are sharply defined. Bones/joints: No acute osseous lesions are detected. IMPRESSION: Borderline heart size with minimal patchy density at the right base which could relate to aspiration. Correlation with clinical data is necessary. Dictated and Authenticated by: Horace Castaneda MD. Ordering:JONNY Cuevas MD
[2024-01-24 20:42] LABS: BE (Venous) 0 mmol/L (-2-3); HCO3 (Venous) 27 mmol/L (23-28); O2 Sat (Venous) 66 %; TCO2 (Venous) 25 mmol/L (24-29); pCO2 (Venous) 57 mmHg (41-51); pH (Venous) 7.28 (7.31-7.41); pO2 (Venous) 39 mmHg
[2024-01-24] MEDS: Lactated Ringers 1,000 ML 1000 ML IV (20:59)
[2024-01-24 22:36] LABS: BE (Venous) 0 mmol/L (-2-3); HCO3 (Venous) 26 mmol/L (23-28); O2 Sat (Venous) 82 %; TCO2 (Venous) 25 mmol/L (24-29); pCO2 (Venous) 56 mmHg (41-51); pH (Venous) 7.28 (7.31-7.41); pO2 (Venous) 51 mmHg
--- NOTE | 2024-01-25 07:12 | NUR.NOTE ---
Access chart to determine EKG's in [facility] and EKG orders in [facility]. Duplicate order cancelled. Nursing Note:
== END 2024-01-24 23:01 | disposition home or self-care (01) ==
PROVIDERS: Emergency Provider Emergency Medicine; PCP Nurse Practitioner Family
DX: T50.904A Poisoning by unspecified drugs, medicaments and biological substances, undetermined, initial encounter (principal); R40.4 Transient alteration of awareness; E78.5 Hyperlipidemia, unspecified; F17.210 Nicotine dependence, cigarettes, uncomplicated; Z98.84 Bariatric surgery status; Y92.89 Other specified places as the place of occurrence of the external cause
CPT/HCPCS: 80053; 80307; 82805; 82962; 93005; 96360; 96361; 99285; 70450; 71045; 80320; 80329; 81003; 81015; 83735; 84439; 84443; 85025; 85610; 85730; 93010; 99284

== ENCOUNTER 2024-02-24 20:46 | Emergency (ER) | payer MEDICAID, SELFPAY ==
[2024-02-24] VITALS (34 sets, daily range): BP systolic 94–129; BP diastolic 56–92; PULSE 92–107; RESP 9–25; TEMP 36.1; O2SAT 80–99
--- NOTE | 2024-02-24 20:30 | RT.EKG_ITS ---
APPROVED REPORT Exam: Resting ECG Reason for Exam: unresponsive, resp arrest Patient Location: E HR:104 bpm ECG Measurements Heart Rate 104 AXIS MO 138 P 49 QRSd 83 QRS 26 QT 359 T 27 QTc 473 Conclusion Sinus tachycardia 104 no stemi
--- NOTE | 2024-02-24 20:45 | DI.RAD_ITS ---
Exam(s) XR PORTABLE CHEST AP EXAM: XR PORTABLE CHEST AP CLINICAL HISTORY: apnea. TECHNIQUE: 2D digital imaging was performed. COMPARISON: CR,XR XR PORTABLE CHEST AP from 01/24/2024 FINDINGS: Single AP portable view. Heart size is upper normal. The mediastinum is not widened. Lungs are clear. No infiltrates nor obvious pleural effusions. IMPRESSION: No acute pulmonary findings on this single AP portable view of the chest. DATA REPOSITORY: RADIATION DOSE DELIVERED:
[2024-02-24] MEDS: Ondansetron 4 MG/2 ML VIAL IVP (21:05)
[2024-02-24 21:06] LABS: Abs Immature Grans 0.07 10^3/uL (0.0-0.06); Absolute Basophil Count 0.04 10^3/uL (0.0-0.2); Absolute Eosinophil Count 0.09 10^3/uL (0.0-0.7); Absolute Lymphocyte Count 0.86 10^3/uL (1.2-3.4); Absolute Monocyte Count 0.68 10^3/uL (0.1-0.8); Absolute Neutrophil Count 11.43 10^3/uL (1.2-6.7); Basophils % 0.3 %; Eosinophils % 0.7 %; HCT 37.6 % (36.0-46.0); HGB 11.8 g/dL (11.2-15.7); Immature Grans % 0.5 %; Lymphocytes % 6.5 %; MCH 29.4 pg (27.0-33.0); MCHC 31.4 % (32.0-36.0); MCV 94 fL (80-95); MPV 9.5 fL (8.0-11.0); Monocytes % 5.2 %; Neutrophils % 86.8 %; Platelet Count 251 10^3/uL (130-400); RBC 4.01 10^6/uL (3.93-5.22); RDW 13.9 % (11.7-14.6); RDW-SD 47.8 fL; WBC 13.17 10^3/uL (4.4-10.8)
[2024-02-24 21:22] LABS: ALT 23 U/L (14-59); AST 28 U/L (15-37); Albumin 3.5 g/dL (3.4-5.0); Alkaline Phosphatase 79 U/L (46-116); Anion Gap 11.6 mmol/L (3-11); BUN 10 mg/dL (7-18); Bilirubin, Total 0.32 mg/dL (0.2-1.0); CO2 26.4 mmol/L (21.0-32.0); CREATININE 1.4 mg/dL (0.55-1.02); Calcium 8.8 mg/dL (8.5-10.1); Chloride 99 mmol/L (98-107); Estimated GFR 43.34 (mL/min/1.73m2); Glucose 297 mg/dL (74-106); Potassium 4.1 mmol/L (3.5-5.1); Sodium 137 mmol/L (136-145); Total Protein 7.5 g/dL (6.4-8.2)
--- NOTE | 2024-02-24 21:43 | NUR.NOTE ---
Nursing Note: per pt daughter pt has about 10 light beers daily. per pt she smokes crack cocaine occasionally. Daughter went home and will pick her up when she is ready to go home. Pt is reporting still being nauseated, provider aware.
[2024-02-24] MEDS: Normal Saline 1,000 ML 1000 ML IV (21:45)
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
[2024-02-24 22:01] LABS: ETHANOL BLOOD < 3.0 mg/dL (<10)
--- NOTE | 2024-02-24 22:01 | DI.VRAD_ITS ---
PROCEDURE INFORMATION: Exam: XR Chest Exam date and time: 02/24/2024 9:13 PM Age: 58 years old Clinical indication: Shortness of breath TECHNIQUE: Imaging protocol: Radiologic exam of the chest. Views: 1 view. COMPARISON: CR XR PORTABLE CHEST AP 01/24/2024 7:19 PM FINDINGS: Lungs: No pulmonary consolidation is seen. Pleural spaces: No pleural effusion or pneumothorax is demonstrated. Heart/Mediastinum: The heart appears normal in size. Bones/joints: The visualized bony structures appear grossly intact. There are osteophytes along the thoracic spinal margin. IMPRESSION: No active disease is seen in the chest. Dictated and Authenticated by: Capo Costa MD. Ordering:[facility] Maryjo Prabhakar MD
[2024-02-24] MEDS: Ondansetron O.D.T. 4 MG TABEF, 3 TABS/BTL PO (23:30)
== END 2024-02-24 23:36 | disposition home or self-care (01) ==
PROVIDERS: Emergency Provider Emergency Medicine; PCP Nurse Practitioner Family
DX: R73.9 Hyperglycemia, unspecified; T50.901A Poisoning by unspecified drugs, medicaments and biological substances, accidental (unintentional), initial encounter
CPT/HCPCS: 36416; 80053; 82962; 93005; 96361; 96374; 99284; 71045; 80320; 85025; 93010; 99283; J2405

== ENCOUNTER 2024-03-30 01:23 | Outpatient (CLI) | payer MEDICAID, SELFPAY ==
--- NOTE | 2024-03-30 08:15 | DI.CTLCSR_ITS ---
Exam(s) CT CHEST LUNG CANCER SCREEN EXAM: CT CHEST LUNG CANCER SCREEN CLINICAL HISTORY: Screening for lung cancer,current smoker, z12.9 TECHNIQUE: Imaging Protocol: Axial computed tomography images with coronal and sagittal reformatted images were created and reviewed COMPARISON: CT RENAL COLIC WO CONTRAST from 07/28/2010 CT CHEST WITHOUT/WITH CONTRAST from 06/07/2012 FINDINGS: Tracheobronchial tree: Patent where visualized. No bronchiectasis. Pulmonary parenchyma: No consolidation or dominant measurable mass. No architectural distortion. Lung Nodules: None. Mediastinum and Suzie: No dominant adenopathy or fluid collection. The esophagus is unremarkable. Thyroid gland: Unremarkable. Lymph nodes: Unremarkable. Pleura: No effusion or pneumothorax. Heart: The heart is not dilated. No coronary artery calcifications are seen. No pericardial effusion . Aorta: Thoracic aorta non-dilated.Atherosclerotic calcification is present. Upper abdomen: Prior gastric surgery is noted. Soft Tissues: Unremarkable. Bones: Within normal limits. IMPRESSION: No pulmonary nodules. Lung RADS Cat 1 - Negative: No nodules and definitely benign nodules Lung-RADS 1.0 CATEGORIES: Category 0 - Prior chest CT exam(s) being located for comparison. Category 1 - Annual screening in 12 months. No nodules or definitely benign nodules. Category 2 - Annual screening in 12 months. Benign appearance. Nodules with low likelihood of becomin g active cancer. Category 3 - 6-month follow-up. Probably benign. Short-term follow-up suggested. Nodules with low lik elihood of becoming active cancer. Category 4A - 3-month follow-up and CT/PET if >8 mm in size. Suspicious finding. Findings which requi re additional testing. Category 4B - Findings which require additional testing and tissue sampling. Suspicious finding. Category 4X - Category 3 or 4 nodules with additional features or imaging findings that increases the suspicion of malignancy. Modifier S- Potentially clinically significant finding. (Non lung cancer) RADIATION DOSE DELIVERED: 17.91mGy.cm Total DLP 17.91mGy.cmTotal DLP DATA REPOSITORY: All CT scans at this facility are submitted to the National Radiology Data Registry (NRDR) Dose Index Registry (DIR) with the [employer] (ACR). RADIATION OPTIMIZATION: All CT scans at this facility use at least one of these dose optimization te chniques: automated exposure control; mA and/or kV adjustment per patient size (includes targeted exa ms where dose is matched to clinical indication); or iterative reconstruction.
== END 2024-03-30 01:43 ==
LOC: DI 01:23
PROVIDERS: PCP Nurse Practitioner Family; Visit Provider Nurse Practitioner Family
DX: Z12.2 Encounter for screening for malignant neoplasm of respiratory organs (principal); F17.210 Nicotine dependence, cigarettes, uncomplicated
CPT/HCPCS: 71271

== ENCOUNTER 2024-04-03 03:29 | Outpatient (CLI) | payer MEDICAID, SELFPAY ==
[2024-04-03] MEDS: Albuterol HFA 18 GM 200 PUFF INH IH (16:19)
[2024-04-03] MEDS: Inhaler, Assist Device 1 EACH MC (16:20)
--- NOTE | 2024-04-06 20:23 | W.PFT ---
Date of service: 04/03/24 Time of Service: 14:50 Pulmonary Function Test Result Indications: Asthma Interpretation Spirometry: No baseline airflow limitation. The FEV1 dropped 33% with administration of the dilutent (ie. no methacholine given). Lung Volumes: Normal lung volumes Diffusion Capacity: Normal diffusion Airway Pressure: Normal airways resistance Impression Normal baseline pulmonary function testing. Unable to comment on methacholine challenge as no methacholine was administered. The 33% drop in FEV1 after the dilutent neb may simply represent nebulizer induced bronchospasm. If clinically required, would recommend repeating the test. Clinical Correlation therefore is recommended.
== END 2024-04-03 03:30 | disposition home or self-care (01) ==
LOC: RT 03:30
PROVIDERS: PCP Nurse Practitioner Family; Visit Provider Student in an Organized Health Care Education/Training Program
DX: J45.998 Other asthma (principal)
CPT/HCPCS: 94060; 94070; 94726; 94729; 94010; J7674

== ENCOUNTER 2024-04-20 03:44 | Outpatient (CLI) | payer MEDICAID, SELFPAY ==
[2024-04-20 10:10] LABS: Iron 26 ug/dL (50-170); Total Iron Binding Capacity 399 ug/dL (250-450); Transferrin Sat 7 % (15-50)
[2024-04-20 10:37] LABS: Calcium 9.6 mg/dL (8.5-10.1); TSH (W/Ref FT4) 0.94 uIU/mL (0.36-3.74); Vitamin B12 531 pg/mL (193-986)
[2024-04-20 10:46] LABS: Folate 14.3 ng/mL (8.6-20.0)
[2024-04-20 10:55] LABS: Vitamin D 25 Total 16.4 ng/mL (30-100)
[2024-04-25 11:56] LABS: Thiamine (Vitamin B1), WB 118 nmol/L (70-180)
== END 2024-04-20 03:45 | disposition home or self-care (01) ==
LOC: LBO 03:44
PROVIDERS: PCP Nurse Practitioner Family; Visit Provider Nurse Practitioner Family
DX: Z98.84 Bariatric surgery status (principal)
CPT/HCPCS: 36415; 82306; 82310; 82607; 82746; 83540; 83550; 84425; 84443

== ENCOUNTER 2024-04-20 07:11 | Outpatient (CLI) | payer MEDICAID, SELFPAY ==
[2024-04-20] VITALS (14 sets, daily range): BP systolic 132–167; BP diastolic 83–111; PULSE 72–90; RESP 12–18; TEMP 36.7; O2SAT 97–100
[2024-04-20] MEDS: fentaNYL 100 MCG/2 ML VIAL IVP ×2 (08:10→08:20)
[2024-04-20] MEDS: Midazolam 2 MG/2 ML VIAL IVP (08:10)
--- NOTE | 2024-04-20 08:39 | DI.RAD_ITS ---
Exam(s) XR PAIN CLINIC LUMBAR SP 2V EXAM: XR PAIN CLINIC LUMBAR SP 2V CLINICAL HISTORY: DX: Lumbar Spondylosis TECHNIQUE: 2D and realtime digital imaging was performed. Radiologist not present. CONTRAST MATERIAL: None. COMPARISON: No exams were available for comparison FINDINGS: Fluoroscopy was provided for pain management therapy. Please refer to procedure report or details. Radiation Exposure Index: Ka,r=4.50 mGy IMPRESSION: As above. RADIATION DOSE DELIVERED:
--- NOTE | 2024-04-20 08:39 | PDOC.PAIN_ITS ---
Date of service: 04/20/24 Time of Service: 08:39 Pain Managment Procedure Note Procedure Note Procedure Note: PROCEDURE NOTE RIGHT LUMBAR RADIOFREQUENCY ABLATION Date of Service: April 20, 2024 Patient:? Yovana Apodaca? Provider:? Den Lim DO, MPH Yovana Apodaca [facility] Right Lumbar Radiofrequency Ablation with the [employer] Machine.? Pre Operative Diagnosis: Lumbosacral Spondylosis without Myelopathy ICD-10 M47.816 Post Operative Diagnosis: Same Pre procedure pain; VAS= 7/10 with activity Comments: Last Right L3-L5 RFA was 01/19/23 with about 10 months of >50% pain relief. PROCEDURE: Radiofrequency Ablation of medial branches - right L3, L4, L5 and lateral branches of right S1. Yovana?was interviewed and the medical record was reviewed.? There were no medical, pharmacologic, radiographic or other structural contraindications to attempting fluoroscopically guided RIGHT Lumbar Radiofrequency Ablation.?Risks and expected side effects as well as potential benefit of the procedure were reviewed with Yovana, and the patient's voiced concerns were addressed.? The printed consent form was signed.? Standard time-out procedure was performed. Yovana was brought into the fluoroscopy suite and positioned into the prone position on the fluoroscopy table and allowed to adjust to a position of comfort. A grounding pad was placed on the left abdomen. The sterile field was prepared using chlorhexidine preparation of the skin and sterile draping. Local anesthesia superficial and deep was provided by local infiltration of 2% lidocaine. A 17g 100 mm radiofrequency introducer needle was placed to the planned anatomic targets guided with intermittent fluoroscopy with a perpendicular approach to terminally place at the junction of the superior articular process and the transverse process of the right L4, L5, the base of the sacral ala on the right for the L5 medial branch nerve and the area between base of the sacral ala to the S1 foramen on the right. The stylets were removed and radiofrequency probes with a 4mm active tip were then inserted. Needle tip position of the probes was verified in the AP, oblique, and lateral views. At each site, the medial branch nerve was stimulated at 2 Hz to a maximum 1-2 volts determined to finalize safe needle and electrode placement. The patient was awake and responsive during this portion of the procedure. Each target was anesthetized with 1-2 mL of 2 % Lidocaine for anesthesia for lesioning and then each target was lesioned at 80 degrees Celsius for 2 minutes and 30 seconds. Tissue impedances were noted to be between 250 and 500 Ohms. Next, I injected 1/4 cc of Depomedrol (40m/cc) followed by 1 cc of 0.5% Bupivacaine. There was no unusual discomfort expressed by Yovana. The needles were withdrawn without difficulty and bandages placed over the needle placement sites, the patient was observed and was without hemodynamic, neurologic, or allergic reactions. Fluoroscopic images were digitally archived. POST PROCEDURE EVALUATION: IMPRESSION: 1. Summary of procedure. Medication given is documented in the MAR. 2. Follow up plan: Yovana to contact [facility] as needed.?This procedure may be repeated if the patient achieves at least 50% improvement in pain/function for at least 6 months. 3. Estimated Blood Loss: <5 mls 4. Fluoroscopy time: Documented in the EMR. Follow up plans and appointments were discussed with the Yovana. Post procedure instruction was given as documented in nursing documentation and having met discharge criteria, Yovana was discharged from the [facility]. COMMENTS: No apparent complications. Post-procedure pain: VAS= 0/10. I personally completed the entire procedure. DEN LIM DO, MPH ABPM&R - Subspecialty board certification in Pain Medicine [facility] [facility]
[2024-04-20] MEDS: Bupivacaine 0.5% Pres-Free 10 ML VIAL IJ (08:46)
[2024-04-20] MEDS: Lidocaine 2% Pres-Free 5 ML VIAL IJ (08:46)
[2024-04-20] MEDS: methylPREDNISolone ACETATE 40 MG/ML VIAL IJ (08:47)
[2024-04-20] MEDS: Nerve Block Tray 1 EACH MC (08:47)
== END 2024-04-20 07:12 | disposition home or self-care (01) ==
LOC: PC 07:11
PROVIDERS: PCP Nurse Practitioner Family; Visit Provider Preventive Medicine Occupational Medicine
DX: M47.816 Spondylosis without myelopathy or radiculopathy, lumbar region (principal)
CPT/HCPCS: 64635; 64636; 72100; J0665; J1010; J2250; J3010

== ENCOUNTER 2025-01-10 07:25 | Outpatient (CLI) | payer MEDICAID, SELFPAY ==
[2025-01-10] VITALS (13 sets, daily range): BP systolic 133–185; BP diastolic 80–116; PULSE 75–88; RESP 13–19; TEMP 37.1; O2SAT 93–97
--- NOTE | 2025-01-10 06:00 | DI.RAD_ITS ---
Exam(s) XR PAIN CLINIC LUMBAR SP 2V EXAM: XR PAIN CLINIC LUMBAR SP 2V CLINICAL HISTORY: DX: Lumbar Spondylosis TECHNIQUE: 2D and realtime digital imaging was performed. CONTRAST MATERIAL: Refer to procedure report. COMPARISON: No exams were available for comparison FINDINGS: Fluoroscopy was provided for Dr. Lim during the performance of a lumbar radiofrequency ablation. Please refer to the procedure report for complete details. Ka,r=5.82 mGy IMPRESSION: RADIATION DOSE DELIVERED: 0.0 0.0 0
[2025-01-10] MEDS: fentaNYL 100 MCG/2 ML VIAL IJ (08:15)
[2025-01-10] MEDS: Midazolam 2 MG/2 ML VIAL IVP (08:15)
[2025-01-10] MEDS: Lactated Ringers 500 ML 30 ML IV (08:30)
[2025-01-10] MEDS: Lidocaine 2% Pres-Free 5 ML VIAL IJ (08:50)
[2025-01-10] MEDS: Nerve Block Tray 1 EACH MC (08:51)
[2025-01-10] MEDS: Bupivacaine 0.5% Pres-Free 10 ML VIAL IJ (08:51)
[2025-01-10] MEDS: methylPREDNISolone ACETATE 40 MG/ML VIAL IJ (08:51)
--- NOTE | 2025-01-10 08:58 | PDOC.PAIN_ITS ---
Date of service: 01/10/25 Time of Service: 08:58 Pain Managment Procedure Note Procedure Note Procedure Note: PROCEDURE NOTE RIGHT LUMBAR RADIOFREQUENCY ABLATION Date of Service: January 10, 2025 Patient:? Yovana Apodaca? Provider:? Den Lim DO, MPH Yovana Apodaca [facility] Lumbar Radiofrequency Ablation with the Asktourisms Machine.? Pre Operative Diagnosis: Lumbosacral Spondylosis without Myelopathy ICD-10 M47.816 Post Operative Diagnosis: Same Pre procedure pain; VAS= 7/10 Comments: She last had this procedure on 04/20/24 with >6 months of >50% pain relief. PROCEDURE: Radiofrequency Ablation of medial branches - right L3, L4, L5 and lateral branches of the right S1. Yovana?was interviewed and the medical record was reviewed.? There were no medical, pharmacologic, radiographic or other structural contraindications to attempting fluoroscopically guided RIGHT Lumbar Radiofrequency Ablation.?Risks and expected side effects as well as potential benefit of the procedure were reviewed with Yovana, and the patient's voiced concerns were addressed.? The printed consent form was signed.? Standard time-out procedure was performed. Yovana was brought into the fluoroscopy suite and positioned into the prone position on the fluoroscopy table and allowed to adjust to a position of comfort. A grounding pad was placed on the left abdomen. The sterile field was prepared using chlorhexidine preparation of the skin and sterile draping. Local anesthesia superficial and deep was provided by local infiltration of 2% lidocaine. A 17g 100 mm radiofrequency introducer needle was placed to the planned anatomic targets guided with intermittent fluoroscopy with a perpendicular approach to terminally place at the junction of the superior articular process and the transverse process of the right L4, L5, the base of the sacral ala on the right for the L5 medial branch nerve and the area between base of the sacral ala to the S1 foramen on the right. The stylets were removed and radiofrequency probes with a 4mm active tip were then inserted. Needle tip position of the probes was verified in the AP, oblique, and lateral views. At each site, the medial branch nerve was stimulated at 2 Hz to a maximum 1-2 volts determined to finalize safe needle and electrode placement. The patient was awake and responsive during this portion of the procedure. Each target was anesthetized with 1-2 mL of 2 % Lidocaine for anesthesia for lesioning and then each target was lesioned at 80 degrees Celsius for 2 minutes and 30 seconds. Tissue impedances were noted to be between 250 and 500 Ohms. There was no unusual discomfort expressed by Yovana. The needles were withdrawn without difficulty and bandages placed over the needle placement sites, the patient was observed and was without hemodynamic, neurologic, or allergic reactions. Fluoroscopic images were digitally archived. POST PROCEDURE EVALUATION: IMPRESSION: 1. Summary of procedure. Medication given is documented in the MAR. 2. Follow up plan: Yovana to contact [facility] needed.?This procedure may be repeated if the patient achieves at least 50% improvement in pain/function for at least 6 months. 3. Estimated Blood Loss: <5 mls 4. Fluoroscopy time: Documented in the EMR. Follow up plans and appointments were discussed with the Yovana. Post procedure instruction was given as documented in nursing documentation and having met discharge criteria, Yovana was [facility] from the [facility]. This advanced procedure uses cooled radiofrequency energy to safely target the sensory nerves responsible for sending pain signals.1 A radiofrequency generator transmits a small current of Radiofrequency energy through an insulated electrode, or probe, placed within tissue. Ionic heating, produced by the friction of charged molecules, thermally deactivates the nerves responsible for sending pain signals to the brain. Radiofrequency energy heats and cools the tissue at the site of pain. Unlike other Radiofrequency procedures, Coolief circulates water through the device while heating nervous tissue to create a larger treatment area, increasing the opportunity to help with pain. This combination targets the pain- transmitting nerves without excessive heating, leading to pain relief. COMMENTS: No apparent complications. Post-procedure pain: VAS= 0/10. I personally completed the entire procedure. DEN LIM DO, MPH ABPM&R - Subspecialty board certification in Pain Medicine [facility] Coding Conscious Sedation used for procedure: Yes CPT Codes: Single Facet Joint, Lumbar/Sacral cool - 86273D ([id number]~G) Right Single Facet Joint, Lumbar/Sacral cool each add'l - 40523W ([id number]~G) RT - RIGHT SIDE Additional Codes: Date of Service (48708) Date of service: 01/10/25 Diagnoses: Lumbosacrol spondylosis without myelopathy
== END 2025-01-10 07:26 | disposition home or self-care (01) ==
LOC: PC 07:25
PROVIDERS: PCP Nurse Practitioner Family; Visit Provider Preventive Medicine Occupational Medicine
DX: M47.816 Spondylosis without myelopathy or radiculopathy, lumbar region (principal)
CPT/HCPCS: 64635; 64636; 72100; J0665; J1010; J2250; J3010

== ENCOUNTER 2025-02-15 11:56 | Emergency (ER) | payer MEDICAID, SELFPAY ==
[2025-02-15 11:57] VITALS: BP 162/115; PULSE 80; RESP 15; TEMP 36.2; O2SAT 96
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
[2025-02-15 12:36] LABS: Abs Immature Grans 0.02 10^3/uL (0.0-0.06); HCT 39.0 % (36.0-46.0); HGB 12.2 g/dL (11.2-15.7); Immature Grans % 0.3 %; MCH 27.9 pg (27.0-33.0); MCHC 31.3 % (32.0-36.0); MCV 89 fL (80-95); MPV 9.2 fL (8.0-11.0); Platelet Count 295 10^3/uL (130-400); RBC 4.37 10^6/uL (3.93-5.22); RDW 14.6 % (11.7-14.6); RDW-SD 48.0 fL; WBC 6.76 10^3/uL (4.4-10.8)
[2025-02-15 12:49] LABS: Glucose Negative (Negative)
[2025-02-15 13:00] LABS: C & S Indicated? No; RBC Negative HPF (0-2); WBC 0-2 HPF (0-5)
[2025-02-15 13:03] LABS: Salicylate 3.9 mg/dL (<2.8)
[2025-02-15 13:08] LABS: Acetaminophen < 2 ug/mL (10-30)
[2025-02-15 13:08] LABS: Cannabinoids THC Negative (Negative); METHADONE URINE SCREEN Negative (Negative)
[2025-02-15 13:11] LABS: Anion Gap 9.6 mmol/L (3-11); BUN 12 mg/dL (7-18); CO2 27.4 mmol/L (21.0-32.0); Calcium 9.4 mg/dL (8.5-10.1); Chloride 104 mmol/L (98-107); Estimated GFR 84.30 (mL/min/1.73m2); Glucose 98 mg/dL (74-106); Potassium 4.2 mmol/L (3.5-5.1); Sodium 141 mmol/L (136-145); TSH (W/Ref FT4) 0.77 uIU/mL (0.36-3.74)
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
[2025-02-15 15:45] VITALS: BP 105/69; PULSE 99; RESP 12; O2SAT 97
--- NOTE | 2025-02-15 16:31 | NUR.NOTE ---
Nurse to Nurse done with Arlyn BROWN from [facility].
[2025-02-15 16:35] LABS: Salicylate < 2.8 mg/dL (<2.8)
[2025-02-15] MEDS: Albuterol HFA 8 GM 60 PUFF INH IH (17:00)
== END 2025-02-15 17:00 ==
PROVIDERS: Emergency Provider Emergency Medicine; PCP Nurse Practitioner Family
DX: F32.A Depression, unspecified (principal); R45.851 Suicidal ideations
CPT/HCPCS: 99285 ×2; 00123; 80048; 80307; 96127; 80320; 80329; 81003; 81015; 84443; 85025

== ENCOUNTER 2025-02-15 18:15 | Outpatient (REF) | payer MEDICAID, SELFPAY ==
--- NOTE | 2025-02-15 20:59 | NUR.NOTE ---
Accessed chart when [facility] Dept of Mental Health called to find out where patient was transferred to. Nursing Note:
[2025-02-19 12:15] LABS: Chlamydia Result Invalid (Negative); GC Result Invalid (Negative)
== END 2025-02-15 18:16 | disposition home or self-care (01) ==
LOC: LBN 18:15
PROVIDERS: PCP Nurse Practitioner Family; Visit Provider Nurse Practitioner Family
DX: N76.0 Acute vaginitis (principal); Z11.3 Encounter for screening for infections with a predominantly sexual mode of transmission
CPT/HCPCS: 87491; 87591; 87480; 87510; 87660

== ENCOUNTER 2025-03-26 06:59 | Emergency (ER) | payer MEDICAID, SELFPAY ==
[2025-03-26 07:05] VITALS: BP 122/88; PULSE 80; RESP 10; TEMP 37; O2SAT 95
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
[2025-03-26] MEDS: Lidocaine 5% Patch 1 PATCH TP (07:30)
[2025-03-26] MEDS: Acetaminophen 325 MG TAB 650 MG PO (07:30)
[2025-03-26] MEDS: diazePAM 2 MG TAB PO (07:30)
[2025-03-26] MEDS: Ibuprofen 400 MG TAB PO (07:30)
== END 2025-03-26 07:48 | disposition home or self-care (01) ==
PROVIDERS: Emergency Provider Emergency Medicine; PCP Nurse Practitioner Family
DX: M54.50 Low back pain, unspecified (principal)
CPT/HCPCS: 99283 ×2

== ENCOUNTER 2025-04-03 14:30 | Outpatient (REF) | payer MEDICAID, SELFPAY | END 2025-04-03 14:31 | disposition home or self-care (01) | LOC: LBN 14:30 | PROVIDERS: PCP Nurse Practitioner Family; Visit Provider Nurse Practitioner Family | DX: N76.0 Acute vaginitis (principal) | CPT/HCPCS: 87480; 87510; 87660 ==

== ENCOUNTER 2025-04-27 13:35 | Outpatient (CLI) | payer MEDICAID, SELFPAY ==
[2025-04-27 11:43] LABS: HCT 36.5 % (36.0-46.0); HGB 11.2 g/dL (11.2-15.7); MCH 27.9 pg (27.0-33.0); MCHC 30.7 % (32.0-36.0); MCV 91 fL (80-95); MPV 8.6 fL (8.0-11.0); Platelet Count 261 10^3/uL (130-400); RBC 4.02 10^6/uL (3.93-5.22); RDW 14.1 % (11.7-14.6); RDW-SD 46.7 fL; WBC 6.12 10^3/uL (4.4-10.8)
[2025-04-27 12:14] LABS: ALT 19 U/L (14-59); AST 18 U/L (15-37); Albumin 3.4 g/dL (3.4-5.0); Alkaline Phosphatase 63 U/L (46-116); Anion Gap 6.7 mmol/L (3-11); BUN 14 mg/dL (7-18); Bilirubin, Total 0.4 mg/dL (0.2-1.0); CO2 29.3 mmol/L (21.0-32.0); Calcium 9.3 mg/dL (8.5-10.1); Chloride 105 mmol/L (98-107); Glucose 99 mg/dL (74-106); Magnesium 2.0 mg/dL (1.8-2.4); Potassium 5.2 mmol/L (3.5-5.1); Sodium 141 mmol/L (136-145); TSH 1.05 uIU/mL (0.36-3.74); Total Protein 7.5 g/dL (6.4-8.2)
== END 2025-04-27 13:36 | disposition home or self-care (01) ==
LOC: LBO 13:37
PROVIDERS: PCP Nurse Practitioner Family; Visit Provider Nurse Practitioner Family
DX: R25.1 Tremor, unspecified (principal)
CPT/HCPCS: 36415; 80053; 85027; 83735; 84443